=== PATIENT | female | born 1960 | race Caucasian/White ===

== ENCOUNTER 2023-04-08 15:48 | Emergency (ER) | payer OTHER, SELFPAY ==
[2023-04-08 16:25] VITALS: BP 148/82; PULSE 72; RESP 16; TEMP 36.7; O2SAT 100; BMI 22.8
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
[2023-04-08] MEDS: methocarbamol 750 mg Tablet PO (16:58)
[2023-04-08 18:05] VITALS: BP 131/80; PULSE 66; O2SAT 100
== END 2023-04-08 18:06 | disposition home or self-care (01) ==
PROVIDERS: Emergency Provider Physician Assistant
DX: M54.2 Cervicalgia (principal); M25.511 Pain in right shoulder; V89.2XXA Person injured in unspecified motor-vehicle accident, traffic, initial encounter
CPT/HCPCS: 72125; 73030; 99284